=== PATIENT | female | born 1970 | race Asian ===

== ENCOUNTER → 2016-06-18 | Outpatient (CLI) | payer BC ==
[2016-06-18 08:41] LABS: BASOPHILS % 0.3 % (0.0-2.0); EOSINOPHILS % 0.3 % (0.0-5.0); HEMATOCRIT. 36.6 % (36.0-48.0); HEMOGLOBIN. 12.3 g/dL (12.0-16.0); LYMPHOCYTES % 27.2 % (20.0-50.0); MEAN CORPUSCULAR HEMOGLOBIN 30.7 pg (28.0-32.0); MEAN CORPUSCULAR HGB CONC 33.6 g/dL (31.0-37.0); MEAN CORPUSCULAR VOLUME 91.3 fL (81.0-99.0); MEAN PLATELET VOLUME 7.6 fl (7.4-10.4); MONOCYTES % 7.6 % (2.0-8.0); NEUTROPHILS % 64.6 % (40.0-76.0); PLATELET 255 x1000/uL (130-400); RED BLOOD CELL COUNT 4.01 mill/uL (4.2-5.4); RED CELL DISTRIBUTION WIDTH 12.8 % (11.6-14.6)
[2016-06-18 09:14] LABS: ALANINE AMINOTRANSFERASE 26 IU/L (13-61); ALBUMIN 3.8 g/dL (3.4-5.0); ANION GAP 12; CALCIUM 8.8 mg/dL (8.5-10.1); CARBON DIOXIDE 29 mEq/L (21-32); CHLORIDE 100 mEq/L (98-107); HDL CHOLESTEROL 68 mg/dL (40-59); INDEX HEMOLYSI 1 (1-3); INDEX ICTERIC 1 (1-4); INDEX LIPEMIC 1 (1-3); LDL CHOLESTEROL 110 mg/dL (5-100); TRIGLYCERIDE 55 mg/dL (0-150); UREA NITROGEN BLOOD 10 mg/dL (7-21); eGFR > 60 mL/min (>60)
== END | disposition home or self-care (01) ==
LOC: LAB 08:16
PROVIDERS: ATTEND Internal Medicine
DX: Z00.00 Encounter for general adult medical examination without abnormal findings (principal)
CPT/HCPCS: 36415; 80053; 80061; 82306; 83036; 84443; 85025

== ENCOUNTER → 2017-05-25 | Outpatient (CLI) | payer BC ==
[2017-05-25 08:28] LABS: BASOPHILS % 0.5 % (0.0-2.0); EOSINOPHILS % 0.4 % (0.0-5.0); HEMATOCRIT. 36.5 % (36.0-48.0); HEMOGLOBIN. 12.2 g/dL (12.0-16.0); LYMPHOCYTES % 30.1 % (20.0-50.0); MEAN CORPUSCULAR HEMOGLOBIN 30.3 pg (28.0-32.0); MEAN CORPUSCULAR VOLUME 90.9 fL (81.0-99.0); MEAN PLATELET VOLUME 7.5 fl (7.4-10.4); MONOCYTES % 7.4 % (2.0-8.0); NEUTROPHILS % 61.6 % (40.0-76.0); PLATELET 314 x1000/uL (130-400); RED BLOOD CELL COUNT 4.02 mill/uL (4.2-5.4); RED CELL DISTRIBUTION WIDTH 12.4 % (11.6-14.6)
[2017-05-25 08:34] LABS: CHLORIDE 102 mEq/L (98-107)
[2017-05-25 08:53] LABS: HDL CHOLESTEROL 54 mg/dL (40-59); LDL CHOLESTEROL 108 mg/dL (5-100); TOTAL IRON BINDING CAPACITY 311 ug/dL (250-450)
[2017-05-25 09:40] LABS: FOLIC ACID (FOLATE) SERUM 17.2 ng/mL (>5.38)
[2017-05-30 08:16] LABS: CHLAMYDIA TRACHOMATIS NAA Negative (Negative); NEISSERIA GONORRHOEAE NAA Negative (Negative)
== END | disposition home or self-care (01) ==
LOC: LAB 07:54
PROVIDERS: ATTEND Family Medicine Adult Medicine
DX: Z00.01 Encounter for general adult medical examination with abnormal findings (principal); B97.89 Other viral agents as the cause of diseases classified elsewhere; R79.89 Other specified abnormal findings of blood chemistry; Z79.899 Other long term (current) drug therapy
CPT/HCPCS: 36415; 80053; 80061; 82306; 82607; 82728; 82746; 83540; 83550; 84439; 84443; 84481; 85025; 87491; 87591

== ENCOUNTER 2018-05-23 21:23 | Emergency (ER) | payer BC ==
[~2018-05-23] VITALS: Ht 162.6 cm; Wt 69.0 kg
[2018-05-24 00:26] LABS: BASOPHILS % 0.3 % (0.0-2.0); CHLORIDE 102 mEq/L (98-107); EOSINOPHILS % 0.2 % (0.0-5.0); HEMOGLOBIN. 12.4 g/dL (12.0-16.0); LYMPHOCYTES % 18.1 % (20.0-50.0); MEAN CORPUSCULAR HEMOGLOBIN 30.6 pg (28.0-32.0); MEAN CORPUSCULAR VOLUME 91.1 fL (81.0-99.0); MEAN PLATELET VOLUME 7.7 fl (7.4-10.4); MONOCYTES % 7.6 % (2.0-8.0); NEUTROPHILS % 73.8 % (40.0-76.0); PLATELET 277 x1000/uL (130-400); RED BLOOD CELL COUNT 4.07 mill/uL (4.2-5.4); RED CELL DISTRIBUTION WIDTH 12.2 % (11.6-14.6)
[2018-05-24 03:28] VITALS: BP 105/67
== END 2018-05-24 03:28 | disposition home or self-care (01) ==
LOC: ER 21:23
DX: G56.22 Lesion of ulnar nerve, left upper limb (principal)
CPT/HCPCS: 36415; 71045; 81025; 84484; 93005; 99284

== ENCOUNTER → 2018-12-29 | Outpatient (CLI) | payer BC ==
[2018-12-29 12:54] LABS: BASOPHILS % 0.4 % (0.0-2.0); EOSINOPHILS % 0.7 % (0.0-5.0); HEMATOCRIT. 38.9 % (36.0-48.0); LYMPHOCYTES % 29.4 % (20.0-50.0); MEAN CORPUSCULAR HEMOGLOBIN 30.9 pg (28.0-32.0); MEAN CORPUSCULAR VOLUME 92.8 fL (81.0-99.0); MEAN PLATELET VOLUME 7.8 fl (7.4-10.4); MONOCYTES % 8.2 % (2.0-8.0); NEUTROPHILS % 61.3 % (40.0-76.0); PLATELET 258 x1000/uL (130-400); RED BLOOD CELL COUNT 4.19 mill/uL (4.2-5.4); RED CELL DISTRIBUTION WIDTH 12.4 % (11.6-14.6)
[2018-12-29 13:01] LABS: CHLORIDE 103 mEq/L (98-107)
[2018-12-29 13:08] LABS: LDL CHOLESTEROL 138 mg/dL (5-100)
[2018-12-29 13:09] LABS: HDL CHOLESTEROL 55 mg/dL (40-59)
== END | disposition home or self-care (01) ==
LOC: LAB 12:06
PROVIDERS: ATTEND Internal Medicine
DX: Z00.00 Encounter for general adult medical examination without abnormal findings (principal)
CPT/HCPCS: 36415; 80061; 82306; 83036; 84443

== ENCOUNTER → 2019-01-11 | Outpatient (CLI) | payer BC | END | disposition home or self-care (01) | LOC: RAD 10:34 | PROVIDERS: ATTEND Internal Medicine | DX: M25.512 Pain in left shoulder (principal); M25.562 Pain in left knee | CPT/HCPCS: 73030; 73562 ==

== ENCOUNTER 2019-04-26 13:11 | Emergency (ER) | payer BC ==
[~2019-04-26] VITALS: Ht 162.6 cm; Wt 69.0 kg
[2019-04-26] MEDS ORDERED: ONDANSETRON HCL 4MG/2ML INJ IV STA (15:41)
[2019-04-26] MEDS ORDERED: SODIUM CHLORIDE 0.9% 500 ML IV ONE (15:41)
[2019-04-26 16:29] LABS: BASOPHILS % 0.1 % (0.0-2.0); EOSINOPHILS % 0.1 % (0.0-5.0); HEMATOCRIT. 41.8 % (36.0-48.0); HEMOGLOBIN. 14.1 g/dL (12.0-16.0); LYMPHOCYTES % 10.4 % (20.0-50.0); MEAN CORPUSCULAR HEMOGLOBIN 31.2 pg (28.0-32.0); MEAN CORPUSCULAR VOLUME 92.6 fL (81.0-99.0); MEAN PLATELET VOLUME 8.1 fl (7.4-10.4); MONOCYTES % 4.2 % (2.0-8.0); NEUTROPHILS % 85.2 % (40.0-76.0); PLATELET 306 x1000/uL (130-400); RED BLOOD CELL COUNT 4.52 mill/uL (4.2-5.4); RED CELL DISTRIBUTION WIDTH 12.9 % (11.6-14.6)
[2019-04-26 16:34] LABS: CHLORIDE 104 mEq/L (98-107)
[2019-04-26 16:40] LABS: CLARITY URINE CLEAR (CLEAR); COLOR URINE DARK YELLOW (YELLOW); KETONES URINE TRACE (NEGATIVE); LEUKOCYTE ESTERASE URINE NEGATIVE (NEGATIVE); NITRITE URINE NEGATIVE (NEGATIVE); OCCULT BLOOD URINE 3+ (NEGATIVE); PROTEIN URINE TRACE (NEGATIVE); SPECIFIC GRAVITY URINE 1.032 (1.005-1.030)
[2019-04-26] MEDS ORDERED: MORPHINE SULFATE 2 MG/ML CPJ (NOT FOR IM USE) IV ONE (17:30)
[2019-04-26] MEDS ORDERED: FLUCONAZOLE 100MG TABLET PO ONE (18:00)
[2019-04-26] MEDS ORDERED: FLUCONAZOLE 150MG TABLET PO NR (18:15)
[2019-04-26 19:15] VITALS: BP 125/78
== END 2019-04-26 19:45 | disposition home or self-care (01) ==
LOC: ER 13:11
DX: B37.41 Candidal cystitis and urethritis (principal)
CPT/HCPCS: 36415; 71045; 74176; 80053; 81003; 81025; 83690; 83880; 84484; 85025; 93005; 96374; 96375; 99284; J2270; J2405; J7030; J7040

== ENCOUNTER → 2019-05-08 | Outpatient (CLI) | payer BC | END | disposition home or self-care (01) | LOC: LAB 12:56 | PROVIDERS: ATTEND Obstetrics & Gynecology Obstetrics | DX: N83.202 Unspecified ovarian cyst, left side (principal); N83.201 Unspecified ovarian cyst, right side; R19.00 Intra-abdominal and pelvic swelling, mass and lump, unspecified site | CPT/HCPCS: 76830; 76856 ==

== ENCOUNTER → 2019-05-17 | Outpatient (CLI) | payer BC | END | disposition home or self-care (01) | LOC: MAMMO 09:49 | PROVIDERS: ATTEND Obstetrics & Gynecology Obstetrics | DX: Z12.31 Encounter for screening mammogram for malignant neoplasm of breast (principal) | CPT/HCPCS: 77067 ==

== ENCOUNTER → 2019-09-25 | Outpatient (CLI) | payer BC ==
[2019-09-25 15:14] LABS: BASOPHILS % 0.2 % (0.0-2.0); EOSINOPHILS % 0.5 % (0.0-5.0); HEMATOCRIT. 37.5 % (36.0-48.0); HEMOGLOBIN. 12.9 g/dL (12.0-16.0); LYMPHOCYTES % 23.3 % (20.0-50.0); MEAN CORPUSCULAR HEMOGLOBIN 32.2 pg (28.0-32.0); MEAN CORPUSCULAR VOLUME 93.2 fL (81.0-99.0); MEAN PLATELET VOLUME 7.5 fl (7.4-10.4); MONOCYTES % 7.2 % (2.0-8.0); NEUTROPHILS % 68.8 % (40.0-76.0); PLATELET 264 x1000/uL (130-400); RED BLOOD CELL COUNT 4.02 mill/uL (4.2-5.4); RED CELL DISTRIBUTION WIDTH 12.2 % (11.6-14.6)
[2019-09-25 15:21] LABS: CHLORIDE 102 mEq/L (98-107)
[2019-09-25 15:24] LABS: AMYLASE 71 IU/L (25-115)
== END | disposition home or self-care (01) ==
LOC: LAB 14:48
PROVIDERS: ATTEND Internal Medicine Gastroenterology
DX: K21.9 Gastro-esophageal reflux disease without esophagitis (principal)
CPT/HCPCS: 36415; 80053; 82150; 85025

== ENCOUNTER → 2020-05-07 | Outpatient (CLI) | payer BC ==
[2020-05-07 14:22] LABS: BASOPHILS % 0.5 % (0.0-2.0); EOSINOPHILS % 0.2 % (0.0-5.0); HEMATOCRIT. 35.6 % (36.0-48.0); HEMOGLOBIN. 11.9 g/dL (12.0-16.0); LYMPHOCYTES % 22.5 % (20.0-50.0); MEAN CORPUSCULAR HEMOGLOBIN 30.8 pg (28.0-32.0); MEAN CORPUSCULAR VOLUME 92.3 fL (81.0-99.0); MEAN PLATELET VOLUME 7.8 fl (7.4-10.4); MONOCYTES % 7.3 % (2.0-8.0); NEUTROPHILS % 69.5 % (40.0-76.0); PLATELET 291 x1000/uL (130-400); RED BLOOD CELL COUNT 3.85 mill/uL (4.2-5.4); RED CELL DISTRIBUTION WIDTH 12.8 % (11.6-14.6)
[2020-05-07 14:29] LABS: CHLORIDE 103 mEq/L (98-107)
[2020-05-07 14:38] LABS: T4 FREE 1.17 ng/dL (0.76-1.46)
== END | disposition home or self-care (01) ==
LOC: LAB 13:29
PROVIDERS: ATTEND Specialist
DX: R00.2 Palpitations (principal)
CPT/HCPCS: 36415; 80048; 84439; 84443; 85025

== ENCOUNTER → 2020-05-27 | Outpatient (CLI) | payer BC | END | disposition home or self-care (01) | LOC: CARD 13:16 | PROVIDERS: ATTEND Specialist | DX: R00.2 Palpitations (principal) | CPT/HCPCS: 93225; 93226; 93306 ==

== ENCOUNTER → 2020-05-27 | Outpatient (CLI) | payer BC | END | disposition home or self-care (01) | LOC: LAB 11:58 | PROVIDERS: ATTEND Specialist | DX: R05 Cough (principal); Z20.822 Contact with and (suspected) exposure to COVID-19 | CPT/HCPCS: 87426 ==

== ENCOUNTER → 2020-07-04 | Outpatient (CLI) | payer BC | END | disposition home or self-care (01) | LOC: PT 08:35 | PROVIDERS: ATTEND Orthopaedic Surgery Sports Medicine | DX: S13.4XXD Sprain of ligaments of cervical spine, subsequent encounter (principal); M75.41 Impingement syndrome of right shoulder; M77.11 Lateral epicondylitis, right elbow; X58.XXXD Exposure to other specified factors, subsequent encounter | CPT/HCPCS: 97110; 97140 ==

== ENCOUNTER → 2021-02-16 | Outpatient (CLI) | payer BC ==
[2021-02-16 10:08] LABS: BASOPHILS % 0.3 % (0.0-2.0); EOSINOPHILS % 0.7 % (0.0-5.0); HEMATOCRIT. 38.4 % (36.0-48.0); HEMOGLOBIN. 12.6 g/dL (12.0-16.0); LYMPHOCYTES % 26.4 % (20.0-50.0); MEAN CORPUSCULAR HEMOGLOBIN 30.2 pg (28.0-32.0); MEAN CORPUSCULAR VOLUME 91.7 fL (81.0-99.0); MEAN PLATELET VOLUME 7.7 fl (7.4-10.4); MONOCYTES % 6.9 % (2.0-8.0); NEUTROPHILS % 65.7 % (40.0-76.0); PLATELET 298 x1000/uL (130-400); RED BLOOD CELL COUNT 4.19 mill/uL (4.2-5.4); RED CELL DISTRIBUTION WIDTH 12.9 % (11.6-14.6)
[2021-02-16 10:24] LABS: CHLORIDE 106 mEq/L (98-107)
[2021-02-16 10:28] LABS: CLARITY URINE CLEAR (CLEAR); COLOR URINE YELLOW (YELLOW); KETONES URINE NEGATIVE (NEGATIVE); LEUKOCYTE ESTERASE URINE NEGATIVE (NEGATIVE); NITRITE URINE NEGATIVE (NEGATIVE); OCCULT BLOOD URINE NEGATIVE (NEGATIVE); PROTEIN URINE NEGATIVE (NEGATIVE); SPECIFIC GRAVITY URINE 1.031 (1.005-1.030); UROBILINOGEN URINE 0.2 E.U./dL (0.2-1.0)
[2021-02-16 10:31] LABS: LDL CHOLESTEROL 113 mg/dL (5-100)
[2021-02-16 10:32] LABS: HDL CHOLESTEROL 55 mg/dL (40-59)
[2021-02-16 10:34] LABS: BETA HYDROXYBUTYRATE 0.1 mMol/L (0.0-0.3)
== END | disposition home or self-care (01) ==
LOC: LAB 09:13
PROVIDERS: ATTEND Internal Medicine
DX: Z00.00 Encounter for general adult medical examination without abnormal findings (principal); E55.9 Vitamin D deficiency, unspecified
CPT/HCPCS: 36415; 80053; 80061; 81003; 82010; 82306; 83036; 84443; 85025

== ENCOUNTER → 2021-03-26 | Outpatient (CLI) | payer BC ==
[~2021-03-26] MED LIST: CAFFEINE CITRATE 20MG/ML 3ML VIAL IV ONE; REGADENOSON 0.4 MG/5 ML IV ONE
== END | disposition home or self-care (01) ==
LOC: CARD 06:28
PROVIDERS: ATTEND Specialist
DX: R07.9 Chest pain, unspecified (principal); R00.2 Palpitations
CPT/HCPCS: 78452; 93017; A9500; J2785; J0706

== ENCOUNTER → 2021-06-05 | Outpatient (CLI) | payer BC | END | disposition home or self-care (01) | LOC: RAD 10:15 | PROVIDERS: ATTEND Internal Medicine | DX: M81.0 Age-related osteoporosis without current pathological fracture (principal); M19.90 Unspecified osteoarthritis, unspecified site | CPT/HCPCS: 77080 ==